=== PATIENT | male | born 1990 | race Caucasian/White ===

== ENCOUNTER 2018-01-29 09:31 | Emergency (ER) | payer OTHER ==
[~2018-01-29] VITALS: Ht 170.2 cm; Wt 93.0 kg
[2018-01-29 09:38] VITALS: BP 130/98; Ht 170.2 cm; Wt 93.0 kg
== END 2018-01-29 10:39 | disposition home or self-care (01) ==
LOC: ED 09:31
DX: H72.91 Unspecified perforation of tympanic membrane, right ear (principal)